=== PATIENT | female | born 1965 | race Caucasian/White ===

== ENCOUNTER → 2017-09-05 | Outpatient (CLI) | payer OTHER ==
[2017-09-05 12:53] LABS: ALBUMIN 4.5 g/dL (3.5-5.0); ANION GAP 14 (5-19); BLOOD UREA NITROGEN 41 mg/dL (7-20); CALCIUM 10.2 mg/dL (8.4-10.2); CARBON DIOXIDE 22 mmol/L (22-30); CHLORIDE 102 mmol/L (98-107); GLUCOSE 286 mg/dL (75-110); PHOSPHORUS 4.1 mg/dL (2.5-4.5); POTASSIUM 5.3 mmol/L (3.6-5.0); SODIUM 138.1 mmol/L (137-145)
== END ==
LOC: OD 10:54
PROVIDERS: ATTEND Physician Assistant
DX: Z79.1 Long term (current) use of non-steroidal anti-inflammatories (NSAID) (principal)
CPT/HCPCS: 36415; 80069

== ENCOUNTER 2018-01-06 11:34 | Emergency (ER) | payer BC, OTHER ==
[2018-01-06 12:06] VITALS: BP 115/71
--- NOTE | 2018-01-06 13:09 | ER Document Report ---
ED General - General Chief Complaint: Fall Stated Complaint: FALL/LEFT KNEE PAIN Time Seen by Provider: 01/06/18 12:50 Notes: Patient is a 52-year-old female that presents to the emergency department for chief complaint of left knee pain, right ankle pain, and back pain with radiation into the left leg. Patient states that she fell early this morning around 3 AM on the steps on her porch, denies head or neck injury. She scraped both her knees, and rolled her right ankle. She rates her pain at this time as a 9 out of 10, the worst pain is in her left knee. She denies any headache, neck pain, numbness or tingling or weakness in her arms. 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 She states that she went to work and walked most the day, but states that the pain got worse and her need to the point that she did not want to walk anymore which prompted her to come to the emergency department. Past Medical History: Diabetes mellitus, hypertension, hyperlipidemia Past Surgical History: Finger fusion, shoulder surgery Social History: Admits to smoking cigarettes, denies alcohol or drug use. Family History: Reviewed and noncontributory for presenting illness Allergies: Reviewed, see documented allergy list. REVIEW OF SYSTEMS: Unless otherwise stated in this report the patient's positive and negative responses for review of systems for constitutional, eyes, ENT, cardiovascular, respiratory, gastrointestinal, neurological, genitourinary, musculoskeletal, and integumentary systems and related systems to the presenting problem are either as stated in the HPI or were not pertinent or were negative for the symptoms and/or complaints related to the presenting medical problem. PHYSICAL EXAMINATION: Vital signs reviewed, nursing noted reviewed. GENERAL: Well-appearing, well-nourished and in no acute distress. HEAD: Atraumatic, normocephalic. EYES: Eyes appear normal, extraocular movements intact, sclera anicteric, conjunctiva are normal. ENT: nares patent, oropharynx clear without exudates. Moist mucous membranes. NECK: Normal range of motion, supple without lymphadenopathy LUNGS: Breath sounds clear to auscultation bilaterally and equal. No wheezes rales or rhonchi. HEART: Regular rate and rhythm without murmurs ABDOMEN: Soft, nontender, normoactive bowel sounds. No rebound, guarding, or rigidity. No masses appreciated. EXTREMITIES: Tenderness with palpation over the left knee, there is noted to be a superficial abrasion, no gross deformity, pain with range of motion of the knee particularly with flexion. The right ankle is noted to have lateral swelling, no ecchymosis, normal range of motion, there is tenderness to palpation over the medial malleolus. 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 NEUROLOGICAL: Slightly decreased sensation over the left lateral femoral cutaneous nerve distribution, neurovascularly intact distally in all extremities. Moves all extremities spontaneously Motor and sensory grossly intact on exam. Flexion contracture of the right upper extremity as noted. PSYCH: Normal mood, normal affect. SKIN: Warm, Dry, normal turgor, no rashes or lesions noted on exposed skin TRAVEL OUTSIDE OF THE [place] IN LAST 30 DAYS: No - Related Data Allergies/Adverse Reactions: amitriptyline Allergy (Verified 01/06/18 11:40) fenofibrate Allergy (Verified 01/06/18 11:40) pregabalin [From Lyrica] Allergy (Verified 01/06/18 11:40) tapentadol [From Nucynta] Allergy (Verified 01/06/18 11:40) Past Medical History - Social History Smoking Status: Current Every Day Smoker Family History: Reviewed & Not Pertinent - Past Medical History Cardiac Medical History: Reports: Hx Hypertension Endocrine Medical History: Reports: Hx Diabetes Mellitus Type 2 Skin Medical History: Denies Hx Cellulitis, Denies Hx MRSA Psychiatric Medical History: Reports: Hx Depression Past Surgical History: Reports: Hx Cholecystectomy, Hx Orthopedic Surgery - left shoulder bone spurs removed ( in [place]), bicep muscle was cut, repaired on its own. july 25, 2011 , carpel tunnel surgery ([place]), Hx Tonsillectomy, Hx Tubal Ligation - Immunizations Hx Diphtheria, Pertussis, Tetanus Vaccination: Yes Review of Systems - Review of Systems Notes: Dictated Physical Exam - Vital signs Vitals: Temp Pulse Resp BP 97.9 F 108 H 22 H 115/71 01/06/18 12:00 01/06/18 12:00 01/06/18 12:00 01/06/18 12:00 - Notes Notes: Dictated Course - Re-evaluation Re-evalutation: 01/06/18 15:17 Patient seen and examined vital signs reviewed. Laboratory data and imaging were ordered as appropriate for the patient's presenting symptoms and complaint, with consideration of any critical or life threatening conditions that may be associated with their obtained history and exam as noted above. Patient was treated with tetanus vaccination, patient was offered IM Toradol and Depo-Medrol shot however she refused this, she was given Motrin 800 mg p.o. , and prednisone 40 mg p.o. Results were reviewed when available and demonstrated no acute findings or fractures related to the back, left knee or right ankle. The patient was re-evaluated and was still complaining of pain, results are discussed with the patient, patient was placed in a right ankle splint, she was offered in the immobilizer and walker for her left knee, but declined this as well. Patient did became aggravated and argumentative regarding treatment, I advised her that she did not have any fractures, that she can follow-up with her primary care physician, and that stronger opiate medications are not indicated for contusions. Patient healthcare project manager was asked to see the patient. Results were discussed with the patient at this point, after careful consideration I feel that that patient can be discharged from the emergency department, the patient was educated treatments and reasons to return to the emergency department based on their presumed diagnosis as noted above, they were advised to followup with a primary care physician in 2-3 days. Patient was agreeable to plan of care. *Note is created using voice recognition software and may contain spelling, syntax or grammatical errors. 01/06/18 15:20 - Vital Signs Vital signs: Temp Pulse Resp BP Pulse Ox 97.9 F 108 H 22 H 115/71 01/06/18 12:00 01/06/18 12:00 01/06/18 12:00 01/06/18 12:00 Discharge - Discharge Clinical Impression: Paresthesia and pain of left extremity Knee contusion Qualifiers: Encounter type: initial encounter Laterality: left Qualified Code(s): S80.02XA - Contusion of left knee, initial encounter Ankle pain, right Qualifiers: Chronicity: acute Qualified Code(s): M25.571 - Pain in right ankle and joints of right foot Fall Qualifiers: Encounter type: initial encounter Qualified Code(s): W19.XXXA - Unspecified fall, initial encounter Condition: Good Disposition: HOME, SELF-CARE Instructions: Low Back Pain ([facility]), Sprained Ankle ([facility]) Additional Instructions: Please return to the emergency department if you have any worsening, or concern of your symptoms. Please return to the emergency department if you develop chest pain, difficulty breathing, severe abdominal pain, or ongoing vomiting. Please follow-up with your primary care physician in 2-3 days and any other recommended physicians. If prescribed, take all medications as directed. If you have any questions or concerns do not hesitate to return the emergency department for evaluation. Prescriptions: Methocarbamol [Robaxin 500 mg Tablet] 500 mg PO Q8 PRN #20 tablet PRN Reason: back pain Naproxen [Naprosyn] 500 mg PO Q12 PRN #20 tablet PRN Reason: leg pain Prednisone [Deltasone 20 mg Tablet] 2 tab PO DAILY 4 Days #8 tablet Referrals: SAMIRA LOUIS PA-C [Primary Care Provider] - Follow up as needed BAUTISTA BERMUDEZ MD [ACTIVE STAFF] - Follow up as needed
[2018-01-06] MEDS ORDERED: DIPH/PERTUSS(ACELL)/TETANUS VAC/PF 0.5 ML SYR (>=10YO) IM ONE (13:10)
[2018-01-06] MEDS ORDERED: METHYLPREDNISOLONE ACETATE INJ 40 MG/1 ML ML IM STA (13:12)
[2018-01-06] MEDS ORDERED: KETOROLAC TROMETHAMINE 60 MG/2 ML SDV IM ONE (13:12)
--- NOTE | 2018-01-06 13:58 | RADIOLOGY REPORT (SQ) ---
EXAM DESCRIPTION: ANKLE RIGHT COMPLETE COMPLETED DATE/TIME: 01/06/2018 1:49 pm REASON FOR STUDY: right ankle pain, injury COMPARISON: None. NUMBER OF VIEWS: Three views. TECHNIQUE: AP, lateral, and oblique radiographic images acquired of the right ankle. LIMITATIONS: None. FINDINGS: MINERALIZATION: Normal. BONES: No acute fracture or dislocation. No worrisome bone lesions. JOINTS: No effusions. SOFT TISSUES: There is slight asymmetric soft tissue swelling laterally. OTHER: No other significant finding. IMPRESSION: Mild asymmetric soft tissue swelling laterally. No underlying fracture. TECHNICAL DOCUMENTATION: JOB ID: [id number] [employer]- All Rights Reserved Reading location - IP/workstation name: [email or web address]
--- NOTE | 2018-01-06 13:59 | RADIOLOGY REPORT (SQ) ---
EXAM DESCRIPTION: KNEE LEFT 3 VIEWS COMPLETED DATE/TIME: 01/06/2018 1:49 pm REASON FOR STUDY: left knee pain, injury COMPARISON: None. NUMBER OF VIEWS: Three views. TECHNIQUE: AP, lateral, and sunrise patella radiographic images acquired of the left knee. LIMITATIONS: None. FINDINGS: MINERALIZATION: Normal. BONES: No acute fracture or dislocation. No worrisome bone lesions. JOINT: No effusion. SOFT TISSUES: No soft tissue swelling. No radio-opaque foreign body. OTHER: No other significant finding. IMPRESSION: NEGATIVE STUDY OF THE LEFT KNEE. NO RADIOGRAPHIC EVIDENCE OF ACUTE INJURY. TECHNICAL DOCUMENTATION: JOB ID: [id number] [employer]- All Rights Reserved Reading location - IP/workstation name: [email or web address]
--- NOTE | 2018-01-06 13:59 | RADIOLOGY REPORT (SQ) ---
EXAM DESCRIPTION: L SPINE WHOLE COMPLETED DATE/TIME: 01/06/2018 1:49 pm REASON FOR STUDY: back pain, injury COMPARISON: None. NUMBER OF VIEWS: Five views including obliques. TECHNIQUE: AP, lateral, oblique, and sacral radiographic images acquired of the lumbar spine. LIMITATIONS: None. FINDINGS: MINERALIZATION: Normal. SEGMENTATION: Normal. No transitional anatomy. ALIGNMENT: Normal. VERTEBRAE: Maintained height. No fracture or worrisome bone lesion. DISCS: Preserved height. No significant osteophytes or end plate irregularity. POSTERIOR ELEMENTS: Pedicles and facets are intact. No pars defect or posterior arch defects. HARDWARE: None in the spine. PARASPINAL SOFT TISSUES: Normal. PELVIS: Intact as visualized. No fractures or worrisome bone lesions. SI joints intact. OTHER: No other significant finding. IMPRESSION: NORMAL 5 VIEW LUMBAR SPINE. TECHNICAL DOCUMENTATION: JOB ID: [id number] [employer]- All Rights Reserved Reading location - IP/workstation name: [email or web address]
[2018-01-06] MEDS ORDERED: IBUPROFEN 800 MG TABLET PO ONE (14:55)
[2018-01-06] MEDS ORDERED: PREDNISONE 20 MG TABLET PO ONE (14:55)
== END 2018-01-06 15:15 | disposition home or self-care (01) ==
LOC: ER 11:34
DX: S80.02XA Contusion of left knee, initial encounter (principal); M25.571 Pain in right ankle and joints of right foot; W19.XXXA Unspecified fall, initial encounter; E11.9 Type 2 diabetes mellitus without complications; I10 Essential (primary) hypertension; E87.5 Hyperkalemia; F17.200 Nicotine dependence, unspecified, uncomplicated
CPT/HCPCS: 99283; 96372; 90471; 96374; 73610; 73562; 72110; 90715; L1902; J1885; J1020